=== PATIENT | female | born 1990 | race American Indian/Alaskan Native ===

== ENCOUNTER 2020-07-29 03:39 | Inpatient (IN) | payer MEDICAID ==
[2020-07-29] MEDS ORDERED: LIDOCAINE (2%) 20 MG/1 ML VIAL 20 ML MDV INFILTRATI ONE (04:23)
[2020-07-29] MEDS ORDERED: TERBUTALINE 1 MG/1 ML INJ SUB-Q PRN (04:23)
[2020-07-29] MEDS ORDERED: ePHEDrine SULFATE 50 MG/1 ML INJ IV PRN ×2 (04:23→17:01)
--- NOTE | 2020-07-29 04:34 | History and Physical Report ---
History of Present Illness Date of examination: 07/29/20 Date of admission: 07/29/2020 Chief complaint: Leaking of water from vagina. History of present illness: 30 year old presents with complaint of leaking of water from vagina for past 4.5 hours. Patient states fluid is clear. Patient denies vaginal bleeding. Patient reports active movement. Patient received care at [facility] and records are available. LMP 11/06/2019. EDC 08/12/2020. significant for the following: excessive weight gain, elevated 1 hour sugar test followed by normal 3 hour OGTT, thrombocytopenia. labs are as follows: B+, antibody screen negative, rubella immune, hepatitis B surface antigen negative, HIV negative, RPR nonreactive, chlamydia negative, gonorrhea negative, AFP negative, GBS negative, 1 hour sugar test 136, 3 hour OGTT 81, 171, 140, 99. Past History Past Medical History: other (obesity, migraine) Past Surgical History: no surgical history [employer] History: denies: abnormal PAP smear, chlamydia, gonorrhea, hepatitis B, herpes, HIV, syphilis, trichomonas Family/Genetic History: none Social history: , full code. denies: smoking, alcohol abuse, prescription drug abuse, IV drug use - Obstetrical History Expected Date of Delivery: 08/12/20 Actual Gestation: 38 Week(s) 0 Day(s) : 1 Para: 0 Hx # Term Pregnancies: 0 Number of Pregnancies: 0 Spontaneous Abortions: 0 Induced : 0 Number of Living Children: 0 Medications and Allergies Active Meds: Active Medications Ephedrine Sulfate (Ephedrine Sulfate) 10 mg IV Q2M PRN PRN Reason: Hypotension Fentanyl (Sublimaze) 100 mcg IV Q2H PRN PRN Reason: Pain,Severe (7-10) LABOR PAIN Oxytocin/Sodium Chloride (Pitocin/Ns 30 Unit/500ml) 30 units in 500 mls @ 2 mls/hr IV TITR PATT; Protocol Lactated Ringer's (Lactated Ringers) 1,000 mls @ 125 mls/hr IV DIRECT PATT Lidocaine (Xylocaine 2%) 20 ml INFILTRATI ONCE ONE Stop: 07/29/20 04:24 Terbutaline Sulfate (Brethine) 0.25 mg SUB-Q ONCE PRN PRN Reason: Hyperstimulation/Hypertonicity Review of Systems All systems: negative (leaking of water from vagina) - Vital Signs Vital signs: Vital Signs Pulse Pulse Ox 84 99 07/29/20 03:44 07/29/20 03:44 Temp Pulse Resp BP Pulse Ox 80 139/79 98 07/29/20 04:25 07/29/20 04:14 07/29/20 04:25 - Physical Exam Abdomen: Positive: normal appearance, soft. Negative: distention, tenderness, guarding, rigidity Genitourinary (Female): Positive: normal external genitalia, normal perenium. Negative: perineal/vulvar lesions (no lesions noted on careful exam with bright light upon admission) Vagina: Positive: other (clear fluid) Uterus: Positive: enlarged. Negative: tender Anus/Rectum: Positive: normal perianal skin Extremities: Positive: normal. Negative: tenderness, edema - Obstetrical FHR: category 1 Uterine Contraction Monitor Mode: External Cervical Dilatation: 1 Cervical Effacement Percentage: 60 station: -3 Uterine Contraction Pattern: Irregular Uterine Contraction Intensity: Mild Results Result Diagrams: 07/29/20 04:43 07/29/20 04:43 All other labs normal. Assessment and Plan A: at 38 weeks gestation. Spontaneous rupture of membranes. GBS negative. P: Admit. EFM. Pitocin augmentation of labor. Discussed with patient risks and benefits of Pi tocin augmentation of labor. Patient consented to Pitocin augmentation of labor.
[2020-07-29] MEDS ORDERED: OXYTOCIN DRIP 30 UNITS/500 ML BAG IV SCH (05:00)
[2020-07-29 05:36] LABS: Hematocrit 38.3 % (30.3-42.9); Hemoglobin 13.6 gm/dl (10.1-14.3); Mean Corpuscular HGB Conc 35 % (30-34); Mean Corpuscular Volume 83 fl (79-97); Red Blood Count 4.63 M/mm3 (3.65-5.03); Red Cell Distribution Width 16.2 % (13.2-15.2)
[2020-07-29 05:51] LABS: Platelet Count 105 K/mm3 (140-440)
[2020-07-29 06:02] LABS: Alanine Aminotransferase 12 units/L (7-56); Albumin 3.6 g/dL (3.9-5); Blood Urea Nitrogen 5 mg/dL (7-17); Calcium 9.5 mg/dL (8.4-10.2); Hemolysis Index 3
[2020-07-29 06:32] LABS: Uric Acid 5.3 mg/dL (3.5-7.6)
[2020-07-29 06:47] LABS: BUN/Creatinine Ratio 10
[2020-07-29] MEDS: LACTATED RINGERS 1,000 ML IV SCH ×4 (09:27→22:14)
[2020-07-29] MEDS: fentaNYL 100 MCG/2 ML INJ IV PRN ×2 (11:51→15:07)
--- NOTE | 2020-07-29 14:39 | Event Note ---
Date: 07/29/20 SVE .
[2020-07-29] MEDS ORDERED: NALOXONE 2 MG/2 ML INJ IV PRN (17:01)
--- NOTE | 2020-07-29 17:01 | Anesthesia Consultation ---
Anesthesia Consult and Med Hx Date of service: 07/29/20 - Airway Anesthetic Teeth Evaluation: Good ROM Head & Neck: Adequate Mental/Hyoid Distance: Adequate Mallampati Class: Class II Intubation Access Assessment: Probably Good - Pulmonary Exam CTA: Yes - Cardiac Exam Cardiac Exam: RRR - Pre-Operative Health Status ASA Pre-Surgery Classification: ASA3 Proposed Anesthetic Plan: Epidural - Pulmonary Hx Asthma: No COPD: No Hx Pneumonia: No - Cardiovascular System Hx Hypertension: No - Central Nervous System Hx Seizures: No Hx Psychiatric Problems: No - Endocrine Hx Renal Disease: No Hx End Stage Renal Disease: No Hx Non-Insulin Dependent Diabetes: Yes Hx Hypothyroidism: No Hx Hyperthyroidism: No - Hematic Hx Anemia: No Hx Sickle Cell Disease: No - Other Systems Hx Alcohol Use: No - Additional Comments Anesthesia Medical History Comments: ITP
--- NOTE | 2020-07-29 17:02 | Progress Note ---
Labor Epidural - Labor Epidural Start Time: 16:47 Stop Time: 16:54 Performed by:: BOAZ IRVIN Procedure: Patient is requesting epidural for labor pain. H&P, and labs reviewed. Procedure explained, questions answered, consent obtained. Patient in sitting position with blood pressure cuff and pulse ox on and working. Timeout performed immediately before start of procedure. Sterile betadine prep/drape. 3 mL 1% lidocaine skin wheal at L[3]-L[4]. 18-gauge EximForcetead epidural needle advanced to [id number] with saline at [7] cm. 27-gauge spinal needle advanced until clear, free-flowing CSF. Intrathecal dexmedetomidine [5] mcg administered and needle removed. Epidural catheter advanced to [12] cm, negative aspiration for blood and csf, negative test dose 3 ml 1.5% lidocaine with epinephrine. Sterile steri-strips and tegaderm applied, followed by tape reinforcement. Patient tolerated procedure well.
[2020-07-29] MEDS: fentaNYL-BUPIV 2 MCG/ML-0.125% 200 MCG/100 ML BAG EPIDURAL SCH (17:28)
--- NOTE | 2020-07-29 17:49 | Event Note ---
Date: 07/29/20 SVE 4.5/90/-1. Comfortable after epidural. Category 1 FHR tracing.
[2020-07-30] MEDS: fentaNYL-BUPIV 2 MCG/ML-0.125% 200 MCG/100 ML BAG EPIDURAL SCH (01:13)
--- NOTE | 2020-07-30 02:10 | Event Note ---
Date: 07/30/20 SVE 6./-1. MD has been made aware of patient's slow progress in labor. Category 1 FHR tracing. Patient remains afebrile. Regular contractions.
[2020-07-30] MEDS ORDERED: MAGNESIUM HYDROXIDE (MOM) ORAL LIQD UDC PO PRN (07:34)
[2020-07-30] MEDS ORDERED: WITCH HAZEL/ GLYCERIN PAD TP PRN (07:34)
[2020-07-30] MEDS ORDERED: LANOLIN/ZINC/DIMETHICONE (LANSINOH) 7 GM TP PRN (07:34)
--- NOTE | 2020-07-30 07:43 | Procedure Note ---
OB Delivery Note - Delivery Date of Delivery: 07/30/20 Surgeon: GIA GARCIA Estimated blood loss: other (250 cc) - Vaginal Delivery presentation: vertex Delivery position: OA Delivery induction: none Delivery augmentation: pitocin Delivery monitor: external FHT, external uterine Route of delivery: Delivery placenta: spontaneous Delivery cord: 3 umbilical vessels Episiotomy: midline Delivery laceration: other (2nd degree midline episiotomy and first degree right labial laceration) Anesthesia: epidural Delivery comments: Spontaneous vaginal delivery at 06:26 of liveborn male weighing 2.795 kg over 2nd degree midline episiotomy with apgars of 8/9. Delivery of baby was atraumatic; no nuchal cord. Cord was short. Baby was placed skin to skin with mom immediately after delivery. Spontaneous cry and respirations. Baby was bulb suctioned and dried with warm blankets. 3 vessel cord double clamped and cut. Spontaneous delivery of intact placenta and membranes by kam mechanism. EBL 250 cc. Pitocin to IV fluids after delivery of placenta. Fundus firm and midline. Second degree midline episiotomy and first degree right labial lacera tion repaired with 2-0 vicryl. Vaginal sweep negative. Sponge count correct. Mother and baby stable.
[2020-07-30] MEDS: IBUPROFEN 600 MG TAB PO SCH ×3 (11:38→23:19)
[2020-07-30] MEDS: DOCUSATE SODIUM 100 MG CAP PO SCH ×2 (11:39→23:20)
--- NOTE | 2020-07-30 15:44 | Post Anesthesia Evaluation ---
- Post Anesthesia Evaluation Patient Participated: Yes Airway Patent: Yes Stable Respiratory Function: Yes Nausea/Vomiting: No Temp > 96.8F: Yes Pain Manageable: Yes Adequeate Hydration: Yes Anesthesia Complications: No Block Receding Appropriately: Yes
[2020-07-30 17:32] LABS: Bilirubin,Urine NEG (Negative); Blood,Urine LG (Negative); Color,Urine Yellow (Yellow); Mucus,Urine FEW /HPF; Urobilinogen,Urine < 2.0 mg/dL (<2.0)
[2020-07-30 17:34] LABS: RBC,Urine > 182.0 /HPF (0.0-6.0)
--- NOTE | 2020-07-30 17:41 | Event Note ---
Date: 07/30/20 Urinalysis shows 50 WBC/hpf. IV Rocephin ordered. Urine C&S pending.
[2020-07-30] MEDS ORDERED: SODIUM CHLORIDE 0.9% 1000 ML 1,000 ML IV SCH (18:00)
[2020-07-30] MEDS: cefTRIAXone/NS 1 GM/50 ML 1 GM/50 ML BAG IV SCH (18:29)
[2020-07-30 18:56] LABS: Basophils % (Auto) 0.2 % (0.0-1.8); Eosinophils # (Auto) 0.1 K/mm3 (0.0-0.4); Eosinophils % (Auto) 0.5 % (0.0-4.3); Hematocrit 36.2 % (30.3-42.9); Hemoglobin 12.2 gm/dl (10.1-14.3); Lymphocytes # (Auto) 2.9 K/mm3 (1.2-5.4); Lymphocytes % (Auto) 14.5 % (13.4-35.0); Mean Corpuscular HGB Conc 34 % (30-34); Mean Corpuscular Volume 84 fl (79-97); Monocytes # (Auto) 1.1 K/mm3 (0.0-0.8); Monocytes % (Auto) 5.7 % (0.0-7.3)
[2020-07-30 19:07] LABS: Platelet Count 94 K/mm3 (140-440)
[2020-07-31] MEDS: IBUPROFEN 600 MG TAB PO SCH ×4 (05:25→22:28)
--- NOTE | 2020-07-31 10:49 | Progress Note ---
Assessment and Plan A: PP Day #1 Stable P: Follow Routine Orders D/C Home today per patient request RTO in Six Weeks Subjective - Subjective Date of service: 07/31/20 Patient reports: appetite normal, voiding normally, pain well controlled, flatus, ambulating normally [place]: doing well Objective - Vital Signs Latest vital signs: Vital Signs Temp Pulse Resp BP BP Pulse Ox 07/31/20 08:30 99 F 103 H 20 125/84 07/31/20 00:54 98.4 F 92 H 20 118/71 93 07/30/20 20:25 97.9 F 94 H 20 121/62 99 07/30/20 16:20 98.2 F 85 18 130/86 99 Intake and Output 07/30/20 07/31/20 07/31/20 22:59 06:59 14:59 Intake Total 480 240 320 Output Total 750 Balance -270 240 320 Intake: Oral 240 320 Intake, Free Water 240 240 Output: Urine 750 Indwelling Catheter 750 Other: Total, Intake Amount 240 320 Total, Output Amount 500 # Voids Indwelling Catheter 3 Void 2 1 - Exam Breasts: Present: normal Cardiovascular: Present: Regular rate Lungs: Present: Clear to auscultation, Normal air movement Abdomen: Present: normal appearance, soft, normal bowel sounds Uterus: Present: normal, firm, fundal height below umbilicus Extremities: Present: normal - Labs Labs: Abnormal lab results 07/30/20 07/30/20 Range/Units 16:52 18:27 WBC 19.7 H (4.5-11.0) K/mm3 RDW 16.0 H (13.2-15.2) % Plt Count 94 L (140-440) K/mm3 [place] # (Auto) 1.1 H (0.0-0.8) K/mm3 Seg Neutrophils % 79.1 H (40.0-70.0) % Seg Neutrophils # 15.6 H (1.8-7.7) K/mm3 Urine WBC (Auto) 50.0 H (0.0-6.0) /HPF
--- NOTE | 2020-07-31 10:50 | Discharge Summary ---
Providers - Providers Date of Admission: 07/29/20 04:23 Date of discharge: 07/31/20 Attending physician: FARRAH TILLMAN JR, MD Primary care physician: FARRAH TILLMAN JR, MD Hospitalization Reason for admission: rupture of membranes Delivery: Episiotomy: midline Laceration: none Other procedures: none complications: none Discharge diagnosis: IUP at term delivered [place] baby: male Condition at discharge: Good Disposition: DC-01 TO HOME OR SELFCARE Plan - Provider Discharge Summary Activity: routine, no sex for 6 weeks, no heavy lifting 4 weeks, no strenuous exercise Diet: routine Instructions: routine Additional instructions: [] Smoking cessation referral if applicable(refer to patient education folder for contact #) [] Refer to [facility]'s [facility] Booklet Call your doctor immediately for: * Fever > 100.5 * Heavy vaginal bleeding ( >1 pad per hour) * Severe persistent headache * Shortness of breath * Reddened, hot, painful area to leg or breast * Drainage or odor from incision. * Keep incision clean and dry at all times and follow doctor's instructions regarding bathing/showering - Follow up plan Follow up: FARRAH TILLMAN JR, MD [Primary Care Provider] - 6 Weeks
--- NOTE | 2020-07-31 13:49 | Consultation ---
History of Present Illness - Reason for Consult Consult date: 07/31/20 Reason for consult: mental health assessment - History of Present Psychiatric Illness Mariana Gunn is a 30y/o female patient who was admitted for child . Psych was consulted for score on depression scale. It appears that it was due to the patient's language barrier. During my interview with the patient she is a/o x 3. Her spouse is at bedside holding the baby. She gives me permission to speak in front of him. The patient has a language barrier. Her spouse is translating some questions for her. She's calm, cooperative and pleasant. She is polite. She smiles throughout the interview. The patient denies having any psychiatric history or ever being on any psychiatric medications. She says, "no, I'm well. I'm good." She denies any current suicidal thoughts or presently, she states, "no, never." She also denies any feelings of wanting to hurt anyone else. She denies hallucinations of any kind. She laughs and says, "I have never had that, no, no." She denies any fear or feelings of endangerment. She says "I feel good." The patient denies any illicit drug use, alcohol or nicotine. They both thank me for my time at the end of the interview. PAST PSYCHIATRIC HISTORY: Diagnoses: Denies Suicide attempts or Self-harm behavior: Denies Prior psychiatric hospitalizations: Denies Substance Abuse history: Denies Previous psychiatric medications tried: Denies Outpatient treatment: Denies PAST MEDICAL HISTORY: None reported Family Psychiatric History: None reported or documented SOCIAL HISTORY Marital Status: Living Arrangements: with family Employment Status: Access to guns/weapons: Denies Education: History of Abuse: None reported Legal History: None reported REVIEW OF SYSTEMS Constitutional: Negative for weight loss ENT: Negative for stridor Respiratory: Negative for cough or hemoptysis All other systems reviewed and are negative MENTAL STATUS EXAMINATION General Appearance: Dressed appropriately Behavior: good eye contact, calm and cooperative, pleasant, polite Cooperation: Participating/engaged Psychomotor Behavior: Psychomotor normal Mood: "well, good" Affect and affective range: congruent with mood, Euthymic Thought Process: goal oriented Thought Content: within reality Speech: Normal rate, volume and rhythm Suicidal Ideation: denies Homicidal Ideation: Denies Hallucinations: Denies Delusions: None elicited Impulse Control: unimpaired Insight and Judgment: Normal Memory: Normal Attention: Normal Orientation: Alert, oriented Assessment and Plan Encounter for screening for depression, adult (Z13.31) TREATMENT No medications or scripts given at this time Sitter: Defer to primary Medical: Per [facility] Disposition: Do not recommend acute inpatient psychiatric treatment at this time. The patient to follow up with outpatient psychiatry in 7 to 14 days upon discharge if needed Will sign off. Thank you for this consult. Medications and Allergies Allergies Allergy/AdvReac Type Severity Reaction Status Date / Time No Known Allergies Allergy Verified 07/29/20 08:08 Home Medications Medication Instructions Recorded Confirmed Last Taken Type No Known Home Medications [No 07/30/20 07/30/20 Unknown History Reported Home Medications] Active Meds: Active Medications Hydrocodone Bitart/Acetaminophen (Brady 5/325) 2 each PO Q6H PRN PRN Reason: Pain, Moderate (4-6) Docusate Sodium (Colace) 100 mg PO BID PATT Last Admin: 07/30/20 23:20 Dose: 100 mg Documented by: Ceftriaxone Sodium (Rocephin/Ns 1 Gm/50 Ml) 1 gm in 50 mls @ 100 mls/hr IV Q24HR PATT; Protocol Last Admin: 07/30/20 18:29 Dose: 100 mls/hr Documented by: Sodium Chloride (Nacl 0.9% 1000 Ml) 1,000 mls @ 25 mls/hr IV DIRECT PATT Last Admin: 07/30/20 18:31 Dose: 25 mls/hr Documented by: Ibuprofen (Ibuprofen) 600 mg PO Q6H PATT Last Admin: 07/31/20 05:25 Dose: 600 mg Documented by: Magnesium Hydroxide (Milk Of Magnesia) 30 ml PO HS PRN PRN Reason: Constipation Multi-Ingredient Ointment (Lansinoh) 1 applic TP PRN PRN PRN Reason: Sore Nipples Sodium Chloride (Sodium Chloride Flush Syringe 10 Ml) 10 ml IV PRN NR Stop: 08/04/20 07:59 Witch Yolie/Glycerin (Tucks Pad) 1 each TP PRN PRN PRN Reason: Hemorrhoid/cleansing/soothing Last Admin: 07/30/20 11:39 Dose: 1 each Documented by: Mental Status Exam - Vital signs Last Vital Signs Temp 97.6 F 07/31/20 13:42 Pulse 63 07/31/20 13:42 Resp 20 07/31/20 13:42 BP 115/69 07/31/20 13:42 Pulse Ox 93 07/31/20 00:54 Results Result Diagrams: 07/30/20 18:27 07/29/20 04:43 Abnormal lab results 07/30/20 07/30/20 Range/Units 16:52 18:27 WBC 19.7 H (4.5-11.0) K/mm3 RDW 16.0 H (13.2-15.2) % Plt Count 94 L (140-440) K/mm3 [place]cock # (Auto) 1.1 H (0.0-0.8) K/mm3 Seg Neutrophils % 79.1 H (40.0-70.0) % Seg Neutrophils # 15.6 H (1.8-7.7) K/mm3 Urine WBC (Auto) 50.0 H (0.0-6.0) /HPF All other labs normal.
[2020-07-31] MEDS: HYDROcodone/ACETAMINOPHEN 5-325 MG TAB PO PRN ×2 (14:31→22:39)
[2020-07-31] MEDS: DOCUSATE SODIUM 100 MG CAP PO SCH ×2 (14:32→21:16)
[2020-07-31] MEDS: cefTRIAXone/NS 1 GM/50 ML 1 GM/50 ML BAG IV SCH (18:11)
[2020-08-01] MEDS ORDERED: IBUPROFEN 600 MG TAB PO ONE (11:00)
[2020-08-01] MEDS ORDERED: DOCUSATE SODIUM 100 MG CAP ONE (11:00)
[2020-08-01 18:27] VITALS: BP 127/82
== END 2020-08-01 21:45 | disposition home or self-care (01) | DRG 774 ==
LOC: TRG 03:39 → APU 03:40 → TRG 04:23 → LD 04:23 → OB 07-30 11:03
PROVIDERS: ADMIT Obstetrics & Gynecology; ATTEND Obstetrics & Gynecology
PROC: 10E0XZZ Delivery of Products of Conception, External Approach (ICD-10-PCS; principal; 2020-07-30)
PROC: 0W8NXZZ Division of Female Perineum, External Approach (ICD-10-PCS; 2020-07-30)
PROC: 3E0R3BZ Introduction of Anesthetic Agent into Spinal Canal, Percutaneous Approach (ICD-10-PCS; 2020-07-30)
PROC: 00HU33Z Insertion of Infusion Device into Spinal Canal, Percutaneous Approach (ICD-10-PCS; 2020-07-30)
PROC: 0UQMXZZ Repair Vulva, External Approach (ICD-10-PCS; 2020-07-30)
DX: O99.354 Diseases of the nervous system complicating childbirth (principal); O24.12 Pre-existing type 2 diabetes mellitus, in childbirth; Z3A.38 38 weeks gestation of pregnancy; Z37.0 Single live birth; Z20.828 Contact with and (suspected) exposure to other viral communicable diseases; G43.909 Migraine, unspecified, not intractable, without status migrainosus; E11.9 Type 2 diabetes mellitus without complications; O70.0 First degree perineal laceration during delivery
CPT/HCPCS: 36415; 80053; 81001; 83615; 84550; 85025; 85027; 86850; 86900; 86901; 87086; G0378; J0696; J2590; J3010; J7030; J7120; U0003